=== PATIENT | female | born 1995 | race Caucasian/White ===

== ENCOUNTER 2017-07-12 10:10 | Emergency (ER) | payer BC ==
[2017-07-12 11:08] LABS: HEMOGLOBIN 14.6 gm/dl (12.3-15.3); WHITE BLOOD COUNT 9.7 K/UL (4.5-11.0)
[2017-07-12 11:31] LABS: BUN/CREATININE RATIO 10 (0-10)
== END 2017-07-12 14:30 | disposition home or self-care (01) ==
LOC: ER1 10:10
PROVIDERS: Physician Assistant
DX: O21.9 Vomiting of pregnancy, unspecified (principal); Z3A.09 9 weeks gestation of pregnancy
CPT/HCPCS: 36415; 80053; 81001; 84702; 85025; 96360; 96361; 99284; J7030